=== PATIENT | female | born 2005 | race Caucasian/White ===

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

== ENCOUNTER 2024-04-17 07:10 | Outpatient (CLI) | payer MEDICAID, SELFPAY ==
--- NOTE | 2024-04-17 07:14 | USR_ITS ---
PROCEDURE INFORMATION: Exam: US After First Trimester, Transabdominal Exam date and time: 04/17/2024 7:21 AM Age: 19 years old Clinical indication: Screening exam; Routine US, uterus; Additional info: Anatomy check/ normal -2nd trimester LABS AND CLINICAL REPORTS: Gestational age (Established): 28 w 2 d Estimated due date (Established): 07/08/2024 TECHNIQUE: Imaging protocol: Real-time transabdominal obstetrical ultrasound of the maternal pelvis and a second or third trimester with image documentation. COMPARISON: US OB <= 14 weeks fetus [id number] 12/14/2023 9:48 AM FINDINGS: Gestation: Single live intrauterine gestation. heart rate: 136 bpm. presentation and position: Breech presentation. Placenta: No placenta previa. Grade 1 posterior placenta. Amniotic fluid (Qualitative): Amniotic fluid is normal for gestational age. Amniotic fluid index: 16.5 cm (normal). ANATOMY: midline falx: midline falx is normal. cerebellum: cavum septum pellucidum is normal. cerebellum is normal. lateral ventricles: lateral ventricles are normal. cisterna magna: cisterna magna is normal. choroid plexus: choroid plexus is normal where visualized but visualization is limited. face: The upper lip and nose are normal. facial profile is normal. heart four-chamber view, heart size and position: Normal 4 chamber view, size and position. heart right ventricular outflow tract: Right ventricular outflow tract is normal. heart left ventricular outflow tract: Left ventricular outflow tract is normal. kidneys: kidneys are normal. stomach: There is fluid in the stomach. urinary bladder: There is fluid in the bladder. spine: spine is normal. Umbilical cord and insertion: Three-vessel cord is demonstrated. umbilical cord insertion site is normal. upper limbs: No anomaly of the visualized arms and hands. lower limbs: No anomaly of the visualized legs and feet. external genitalia: Male BIOMETRY: Gestational age (AUA): 28 weeks 4 days Estimated due date (AUA): 07/06/2024 by current ultrasound (07/07/2024 by prior ultrasound) Estimated weight: 1232 g (44th percentile). Biparietal diameter (BPD): 7.04 cm. EGA (BPD) is 28 w 2 d. 37.4 % percentile Head circumference (HC): 26.83 cm. EGA (HC) is 29 w 2 d. 48 % percentile Abdominal circumference (AC): 24.13 cm. EGA (AC) is 28 w 3 d. 46.3 % percentile Femur length (FL): 5.35 cm. EGA (FL) is 28 w 3 d. 37.2 % percentile HC/AC: 1.11. (Normal range: 1 - 1.21) FL/HC: 19.94. (Normal range: 19.26 - 20.71) FL/BPD: 75.99. (Normal range: 71 - 87) FL/AC: 22.17. (Normal range: 20 - 24) MATERNAL: Uterus: Unremarkable. Cervix: Cervix is suboptimally visualized. Right ovary/adnexa: Obscured by lack of adequate acoustic window. Left ovary/adnexa: Obscured by lack of adequate acoustic window. Urinary bladder: Maternal bladder is decompressed. Intraperitoneal space: No intraperitoneal free fluid. US/US OB >= 14 weeks fetus [id number] IMPRESSION: Single live intrauterine gestation of 28 weeks 4 days by current ultrasound for KRISS of 07/06/2024. KRISS by prior ultrasound is 07/07/2024.
== END 2024-04-17 07:11 | disposition home or self-care (01) ==
PROVIDERS: PCP Family Medicine; Visit Provider Family Medicine
DX: Z34.02 Encounter for supervision of normal first pregnancy, second trimester (principal)
CPT/HCPCS: 76805

== ENCOUNTER 2024-06-17 13:00 | Outpatient (CLI) | payer MEDICAID, SELFPAY ==
--- NOTE | 2024-06-17 13:05 | USR_ITS ---
PROCEDURE INFORMATION: Exam: US , Limited Exam date and time: 06/17/2024 1:10 PM Age: 19 years old Clinical indication: Screening exam; Routine US, uterus; Additional info: Supervision of normal third trimester LABS AND CLINICAL REPORTS: Gestational age (Established): 36 w 6 d Estimated due date (Established): 07/09/2024 TECHNIQUE: Imaging protocol: Real-time ultrasound of the maternal uterus with image documentation. Exam focused on the clinical indication. COMPARISON: US OB >= 14 weeks fetus [id number] 04/17/2024 7:21 AM FINDINGS: Gestation: Single intrauterine . heart rate: 139 bpm Amniotic fluid index: JOSE ROBERTO is 17.95 cm. MATERNAL: Cervix: Cervical length measures 3.3 cm and appears closed. US/US OB limited [id number] IMPRESSION: Single live intrauterine without abnormality.
== END 2024-06-17 13:01 | disposition home or self-care (01) ==
LOC: RAD 13:01
PROVIDERS: PCP Family Medicine; Visit Provider Family Medicine
DX: Z34.03 Encounter for supervision of normal first pregnancy, third trimester (principal)
CPT/HCPCS: 76815

== ENCOUNTER 2024-07-08 18:02 | Inpatient (IN) | payer MEDICAID, SELFPAY ==
[2024-07-08] VITALS (14 sets, daily range): BP systolic 109–141; BP diastolic 58–82; PULSE 80–109; RESP 18; TEMP 36.3; BMI 28.1
[2024-07-08 19:01] LABS: Basophils % 0.4 %; Eosinophils # 0.3 10^3/uL (0.0-0.8); Eosinophils % 2.4 %; Hematocrit 34.8 % (36-47); Lymphocytes # 1.6 10^3/uL (1.5-6.5); Lymphocytes % 15.1 %; Mean Corpuscular HGB Conc 32.8 g/dL (30-55); Mean Corpuscular Hemoglobin 28.9 pg (27-33); Mean Corpuscular Volume 88.3 fl (85-98); Mean Platelet Volume 13.2 fL (7.4-10.4); Monocytes # 0.6 10^3/uL (0.2-0.9); Monocytes % 5.7 %; Neutrophils # 7.78 10^3/uL (1.8-8.0); Nucleated Red Blood Cells % 0 %; Platelet Count 165 10^3/cmm (157-399); Red Blood Count 3.94 10^6/uL (3.85-5.65); Red Cell Distribution Width 13.8 % (12.1-15.1); White Blood Count 10.38 10^3/uL (4.5-13.0)
[2024-07-08] MEDS: miSOPROStol 100 mcg tablet 25 MCG VAGINAL (19:01)
[2024-07-08 19:08] LABS: Slide Review Slide Review Perform
--- NOTE | 2024-07-08 19:55 | PM.OBGYHP ---
Providers/Chief Complaint Admitting Physician: Mira Agustin DO Primary Care Provider: Dyllan Graham MD Chief Complaint: IOL HPI SUPERVISOR ADULT EDUCATION History of Present Illness Gurpreet Patton is a 19 year old female at 40w0d by sure LMP c/w 1st trimester US presenting for induction of labor. PMHx unremarkable. course uncomplicated. Denies cramping, LOF, vaginal bleeding. Reports a few intermittent contractions. Good movement. care was good and starting in first trimester. Present Details : 1 Para: 0 Labs Blood type OB HPI: O (+) positive Rubella: Immune RPR: Negative GBS: Negative HBsAG: Negative Other Lab Information: Antibody screen negative 1st trimester H/H 13.4/38.7 GC/Chlamydia negative VZV immune UCx no growth Hep C ab negative HIV negative 1hr GTT passed Genetic screening wnl- negative for trisomy 13, 18, 21 3rd trimester H/H 10.6/30.8 Review of Systems Const: Denies: fever(s) or chills Card: Denies: chest pain, palpitations or swelling of feet/ankles Resp: Denies: dyspnea or wheezing Medications/Allergies Home Medications Medication Instructions Recorded Confirmed Last Taken Type vit no.95-ferrous 1 tab PO DAILY 10/31/23 10/31/23 10/30/23 History fumarate 28 mg-folic acid 800 mcg tablet () metoclopramide HCl 10 mg tablet 10 mg PO Q6H PRN nausea and 11/29/23 Unknown Rx (Reglan) vomiting #20 tabs Allergies Allergy/AdvReac Type Severity Reaction Status Date / Time No Known Allergies Allergy Verified 11/29/23 17:58 PFSH SUPERVISOR ADULT EDUCATION PFSH: Family History Grandmother Cancer Thyroid disease Denies family history of Colon cancer Ovarian cancer Diabetes Clotting disorder Hyperlipidemia Bleeding disorder Hypertension Uterine cancer Stroke History History History 1 Term 0 0 Miscarriages/Ectopic 0 Living Children 0 Vitals/I&O/Wt Last Vital Signs Temp 97.3 F L 07/08/24 18:24 Pulse 86 07/08/24 19:39 Resp 18 07/08/24 18:28 BP 114/72 07/08/24 19:39 O2 Del Method Room Air 07/08/24 18:30 Weight last 48 hrs Weight 180 lb Physical Exam Const: COMMON NORMALS: no acute distress, average body habitus, patient oriented x3, healthy appearing and alert Resp: COMMON NORMALS: normal respiratory effort and clear to auscultation bilaterally Cardio: COMMON NORMALS: regular rate, regular rhythm, S1 normal heart sound present, S2 normal heart sound present and No murmurs present (Cardio) : OTHER: Gravid, S=D Extremity: OTHER: No LE edema Data 07/08/24 18:20 Results Labs OB ([facility]): Obstetrics US 06/17/24 Blood Type O Positive 07/08/24 Antibody Screen Negative 07/08/24 Hct 34.8 % (36-47) L 07/08/24 Hgb 11.40 g/dL (12.4-14.8) L 07/08/24 Rho(D) Type Rh positive 07/08/24 Plt Count 165 10^3/cmm (157-399) 07/08/24 A&P Assessment and plan (1) Elective induction of labor planned: (2) Term : Plan 19yo at 40w0d presenting for induction of labor. Routine CBC, blood typing. Intermittent EFM as long as Category I. Fentanyl protocol, may have epidural when desired. Plan for cytotec dose and repeat SVE in 4 hours unless indicated earlier. Discussed plan of care with patient and agreeable to proceed. Attestations Medical Necessity Statement*: Gurpreet Patton's hospital stay will require greater than 2 midnights for labor and delivery and care. Coding Level of Care Code Acute Code for Chg Fwd Diagnoses Elective induction of labor planned Term Z34.90
[2024-07-09] VITALS (49 sets, daily range): BP systolic 105–141; BP diastolic 55–96; PULSE 67–121; RESP 18–20; TEMP 35.8–35.9
[2024-07-09] MEDS: miSOPROStol 100 mcg tablet 25 MCG VAGINAL (00:59)
[2024-07-09] MEDS: lactated ringers 1,000 ML 999 ML IV (04:38)
[2024-07-09] MEDS: oxytocin 30 UNIT/500 ML BAG IV (13:35)
[2024-07-09] MEDS: fentaNYL 50 mcg/mL INJ 2mL IVP ×4 (14:00→17:36)
[2024-07-09] MEDS: dextrose 5%-lactated ringers 1,000 ML 123 ML IV (16:00)
--- NOTE | 2024-07-09 21:50 | P.PCNOB_ITS ---
Delivery Note: Date of delivery: July 09, 2024 Pre-delivery diagnoses: Term Induction of labor Post-delivery diagnoses: Term delivery of viable male Procedure: Spontaneous vaginal delivery Delivering Physician: Mira Agustin DO Estimated blood loss (mL): 150 Pre-Delivery Course: She was admitted on 07/08/2020 4 in the evening and given Cytotec x 2 every 4 hours. She progressed to SVE 1.5/50/-3 from admission SVE of 30/-3. At that time AROM was performed at 0750 with clear fluid. Following SVE progressed to 3/50/-3 with irregular contraction pattern and low-dose Pitocin was started. She then gradually progressed to complete. Delivery: Patient progressed to complete. Patient placed in lithotomy position. Patient pushed with adequate effort. Head delivered in MATT position, no nuchal cord was present. Shoulders and rest of body delivered without difficulty with no anesthesia. Mouth and nares bulb suctioned. Cord clamped and cut after 2-1/2-minute delay. Infant placed on maternal abdomen. Placenta spontaneously delivered and noted to be intact. Pitocin started. Fundus was noted to be firm. The vagina and cervix were inspected and right first-degree periurethral and midline first-degree lacerations were noted. These were repaired with 3-0 Vicryl. Fundus was again noted to be firm. Male born at 2113 with 8/9 weighing 3740 g and measuring 20.5 in length, 13.75 head circumference and 14 inches chest circumference. Placenta noted to be intact with centrally inserted umbilical cord and three-ves maria guadalupe cord. Complications: Maternal none none History History History 1 Term 1 0 Miscarriages/Ectopic 0 Living Children 1 A&P Assessment and plan (1) Spontaneous vaginal delivery: Coding Level of Care Code Acute Code for Chg Fwd Diagnoses Spontaneous vaginal delivery O80
[2024-07-10] VITALS (11 sets, daily range): BP systolic 99–120; BP diastolic 55–70; PULSE 78–112; RESP 14–18; TEMP 36.5–37.2; O2SAT 98
[2024-07-10] MEDS: acetaminophen 325 mg Tablet 650 MG PO (05:31)
[2024-07-10] MEDS: ibuprofen 800 mg tablet PO ×2 (09:54→20:35)
[2024-07-10] MEDS: docusate sodium 100 mg Capsule PO ×2 (09:54→17:56)
[2024-07-10] MEDS: PRENATAL VIT NO.130/IRON/FOLIC 1 EACH TABLET PO (09:54)
--- NOTE | 2024-07-10 10:30 | P.PN_ITS ---
VETERINARY EPIDEMIOLOGIST Subjective 2 Subjective: Interval history: Doing well overnight. Reports vaginal bleeding is minimal. She has been ambulating without difficulty. Has voided without issue. Tolerating a normal diet without nausea or vomiting. Pain is well-controlled. She is breast- feeding and baby has been latching well. Vitals/I&O/Wt Last Vital Signs Temp 98.9 F 07/10/24 05:00 Pulse 99 07/10/24 05:00 Resp 18 07/10/24 05:00 BP 100/56 07/10/24 05:00 O2 Del Method Room Air 07/08/24 18:30 07/09/24 07/10/24 07/10/24 22:59 06:59 14:59 Intake Total 4.666 / 505.166 Balance 4.666 / 505.166 Weight last 48 hrs Weight 180 lb Physical Exam 2 Const: COMMON NORMALS: no acute distress, average body habitus, patient oriented x3, healthy appearing and alert Resp: COMMON NORMALS: normal respiratory effort and clear to auscultation bilaterally AUSCULTATION: clear to auscultation bilaterally Cardio: COMMON NORMALS: regular rate, regular rhythm, S1 normal heart sound present, S2 normal heart sound present and No murmurs present (Cardio) RATE: regular rate RHYTHM: regular rhythm HEART SOUNDS: S1 normal heart sound present and S2 normal heart sound present : OTHER: Uterine fundus firm and at the umbilicus Extremity: OTHER: No LE edema Neuro: COMMON NORMALS: patient oriented x3 SENSORIUM/ORIENTATION: Yes alert Data 07/08/24 18:20 A&P Assessment and plan (1) Spontaneous vaginal delivery: Plan 19 yo [id number] PPD#1 s/p at 40w1d without complication Routine care. Encourage ambulation, normal diet. Routine hemagram this morning. Continue ibuprofen 800 mg 3 times daily with Tylenol as needed. Anticipate discharge home tomorrow. Attestations 2 Medical Necessity Statement*: Gurpreet Patton's hospital stay will require greater than 2 midnights for labor and delivery and care. Coding Level of Care Code Acute Code for Chg Fwd Diagnoses Spontaneous vaginal delivery O80
[2024-07-10 10:42] LABS: Hematocrit 30.8 % (36-47); Mean Corpuscular HGB Conc 31.8 g/dL (30-55); Mean Corpuscular Hemoglobin 28.4 pg (27-33); Mean Corpuscular Volume 89.3 fl (85-98); Mean Platelet Volume 12.4 fL (7.4-10.4); Platelet Count 151 10^3/cmm (157-399); Red Blood Count 3.45 10^6/uL (3.85-5.65); Red Cell Distribution Width 14.1 % (12.1-15.1); White Blood Count 16.29 10^3/uL (4.5-13.0)
[2024-07-10] MEDS: benzocaine-menthol 78 gm Canister 1 SPRAY TOPICAL (20:35)
[2024-07-10] MEDS: lanolin oint 7 gm 1 APPLIC TOPICAL (20:35)
[2024-07-11 03:38] VITALS: BP 105/62; PULSE 72; RESP 16; TEMP 36.6; O2SAT 97
--- NOTE | 2024-07-11 07:32 | P.DS_ITS ---
Discharge Providers [employer]LECT[employer]IC [employer]IN [employer]IVER Date of Admission: 07/08/24 18:02 Date of Discharge: 07/11/24 Attending Provider at Admission: Mira Agustin DO Attending Provider at Discharge: Mira Agustin DO Primary Care Provider: Dyllan Graham MD Diagnoses at Discharge Discharge Diagnosis (1) Spontaneous vaginal delivery: Status: Acute Reason for Visit Reason for Visit: IOL Hospital Course Hospital Course Pre-Delivery Course: She was admitted on 07/08/2020 4 in the evening and given Cytotec x 2 every 4 hours. She progressed to SVE 1.5/50/-3 from admission SVE of 09/11/-3. At that time AROM was performed at 0750 with clear fluid. Following SVE progressed to 3/50/-3 with irregular contraction pattern and low-dose Pitocin was started. She then gradually progressed to complete. Delivery: Patient progressed to complete. Patient placed in lithotomy position. Patient pushed with adequate effort. Head delivered in MATT position, no nuchal cord was present. Shoulders and rest of body delivered without difficulty with no anesthesia. Mouth and nares bulb suctioned. Cord clamped and cut after 2-1/2-minute delay. Infant placed on maternal abdomen. Placenta spontaneously delivered and noted to be intact. Pitocin started. Fundus was noted to be firm. The vagina and cervix were inspected and right first-degree periurethral and midline first-degree lacerations were noted. These were repaired with 3-0 Vicryl. Fundus was again noted to be firm. Male born at 2113 with 8/9 weighing 3740 g and measuring 20.5 in length, 13.75 head circumference and 14 inches chest circumference. Placenta noted to be intact with centrally inserted umbilical cord and three- vessel cord. Complications: Maternal none Infant none hospital course: Patient underwent on 07/09/24 course was uncomplicated. Following delivery patient ambulated well, tolerated a normal diet without nausea or vomiting. Pain was well-controlled on PO medications, well, no leg/calf pain, no calf/leg swelling, normal urination, passing gas and normal bowel movements. Vaginal bleeding thin lochia and decreasing. labs with appropriate anemia- started on iron supplementation and discharged home on iron supplementation. Follow-up planned for 2 and 6 weeks . Warning signs for endometritis, pre-eclampsia, DVT/PE, mastitis were reviewed, discussed additional warning signs including increased vaginal bleeding, worsening abdominal pain. Pelvic rest and activity precautions reviewed as well. She is discharged on 07/11/24 in stable condition. Information Peripartum Data: Infant Delivery Method: Vaginal Physical Exam Const: COMMON NORMALS: no acute distress, average body habitus, patient oriented x3, healthy appearing and alert Resp: COMMON NORMALS: normal respiratory effort and clear to auscultation bilaterally AUSCULTATION: clear to auscultation bilaterally Cardio: COMMON NORMALS: regular rate, regular rhythm, S1 normal heart sound present, S2 normal heart sound present and No murmurs present (Cardio) RATE: regular rate RHYTHM: regular rhythm HEART SOUNDS: S1 normal heart sound present and S2 normal heart sound present : OTHER: Uterine fundus firm and at the umbilicus Extremity: OTHER: No LE edema Neuro: COMMON NORMALS: patient oriented x3 SENSORIUM/ORIENTATION: Yes alert History History History 1 Term 1 0 Miscarriages/Ectopic 0 Living Children 1 Discharge Data Studies Completed and Pending Laboratory Results WBC 16.29 10^3/uL (4.5-13.0) H 07/10/24 10:37 RBC 3.45 10^6/uL (3.85-5.65) L 07/10/24 10:37 Hgb 9.80 g/dL (12.4-14.8) L 07/10/24 10:37 Hct 30.8 % (36-47) L 07/10/24 10:37 MCV 89.3 fl (85-98) 07/10/24 10:37 MCH 28.4 pg (27-33) 07/10/24 10:37 MCHC 31.8 g/dL (30-55) 07/10/24 10:37 RDW 14.1 % (12.1-15.1) 07/10/24 10:37 Plt Count 151 10^3/cmm (157-399) L 07/10/24 10:37 MPV 12.4 fL (7.4-10.4) H 07/10/24 10:37 Neut % (Auto) 75.0 % 07/08/24 18:20 Lymph % (Auto) 15.1 % 07/08/24 18:20 [place] % (Auto) 5.7 % 07/08/24 18:20 Eos % (Auto) 2.4 % 07/08/24 18:20 Baso % (Auto) 0.4 % 07/08/24 18:20 Neut # (Auto) 7.78 10^3/uL (1.8-8.0) 07/08/24 18:20 Lymph # (Auto) 1.6 10^3/uL (1.5-6.5) 07/08/24 18:20 [place] # (Auto) 0.6 10^3/uL (0.2-0.9) 07/08/24 18:20 Eos # (Auto) 0.3 10^3/uL (0.0-0.8) 07/08/24 18:20 Baso # (Auto) 0.0 10^3/uL (0.0-0.1) 07/08/24 18:20 Nucleated RBC % (auto) 0 % 07/08/24 18:20 Nucleated RBCs # 0.0 /100WBC 07/08/24 18:20 Blood Type O Positive 07/08/24 18:20 Rho(D) Type Rh positive 07/08/24 18:20 Antibody Screen Negative 07/08/24 18:20 Vitals Last Vital Signs Temp 97.9 F 07/11/24 03:38 Pulse 72 07/11/24 03:38 Resp 16 07/11/24 03:38 BP 105/62 07/11/24 03:38 Pulse Ox 97 07/11/24 03:38 O2 Del Method Room Air 07/11/24 03:38 Results Labs OB ([facility]): Obstetrics US 06/17/24 Blood Type O Positive 07/08/24 Antibody Screen Negative 07/08/24 Hct 30.8 % (36-47) L 07/10/24 Hgb 9.80 g/dL (12.4-14.8) L 07/10/24 Rho(D) Type Rh positive 07/08/24 Plt Count 151 10^3/cmm (157-399) L 07/10/24 Discharge Plan Discharge Patient Disposition: Home Condition: Stable Prescriptions: New ibuprofen 800 mg Tablet 800 mg PO TID Qty: 90 0RF docusate sodium 100 mg Capsule 100 mg PO BID Qty: 60 0RF ferrous sulfate 325 mg (65 mg iron) Tablet,Delayed Release (Dr/Ec) 325 mg PO BREAKFAST Qty: 90 0RF Continued PNV cmb#[id number]-ferrous fumarate-FA [] 28 mg iron- 800 mcg Tablet 1 tab PO DAILY Discontinued metoclopramide HCl [Reglan] 10 mg tablet 10 mg PO Q6H PRN (Reason: nausea and vomiting) Qty: 20 0RF Discharge Orders: Discharge Order (Routine); Ordered 07/11/24 Ordered By: Mira Agustin Referrals: Mira Agustin DO [Physician] - 6 Weeks (Call the office to scheduled your 6 week follow up with Dr Agustin) Discharge Diet: Usual diet Discharge Activity: Increase activity as tolerated Patient Instructions: Depression (DC), Opioid Safety (DC), Preeclampsia and Eclampsia After Delivery (GEN), Hemorrhage (DC), OB Discharge Report, OB Food/Drug Interaction Guide, OB Care at Home, Opioid Safety, OB Vaginal Deliveries, Abnormal Bleeding Activity Restrictions/Additional Instructions: Pelvic rest for 6 weeks. Follow-up with Dr. Agustin at 2 and 6 weeks Discharge Attestations [employer]IVER Time Spent in Discharge Care*: less than 30 min Coding Level of Care Code Acute Code for Chg Fwd Diagnoses Spontaneous vaginal delivery O80
[2024-07-11] MEDS: docusate sodium 100 mg Capsule PO (11:39)
[2024-07-11] MEDS: ferrous sulfate EC 325 mg Tablet PO (11:39)
[2024-07-11] MEDS: ibuprofen 800 mg tablet PO (11:39)
[2024-07-11] MEDS: PRENATAL VIT NO.130/IRON/FOLIC 1 EACH TABLET PO (11:39)
[2024-07-11 13:34] VITALS: BP 113/70; PULSE 81; RESP 16; TEMP 36.7; O2SAT 97
[2024-07-11 13:55] VITALS: BP 113/70; PULSE 81; RESP 16; TEMP 36.7; O2SAT 97
== END 2024-07-11 14:15 | disposition home or self-care (01) | DRG 807 ==
PROVIDERS: Admitting Provider Family Medicine; PCP Family Medicine; Visit Provider Family Medicine
DX: O48.0 Post-term pregnancy (principal); Z37.0 Single live birth; Z3A.40 40 weeks gestation of pregnancy; O71.82 Other specified trauma to perineum and vulva; O70.0 First degree perineal laceration during delivery; O90.81 Anemia of the puerperium; D64.9 Anemia, unspecified
CPT/HCPCS: 36415; 59409; 85025; 85027; 86850; 86900; 98960; J2590; J3010; J7120; J7121

== ENCOUNTER → 2025-06-26 14:02 | Outpatient (BNVA) | payer MEDICAID, SELFPAY | PROVIDERS: PCP Family Medicine; Visit Provider Nurse Practitioner Women's Health | DX: N92.6 Irregular menstruation, unspecified (principal); Z78.9 Other specified health status | CPT/HCPCS: 81025; 84702 ==